=== PATIENT | male | born 1980 | race Caucasian/White ===

== ENCOUNTER → 2018-11-08 | Emergency (ER) | payer OTHER ==
[~2018-11-08] VITALS: Ht 167.6 cm; Wt 79.4 kg
[~2018-11-08] MED LIST: OSEL75CA PO
== END | disposition home or self-care (01) ==
LOC: ER 21:07
DX: S93.691A Other sprain of right foot, initial encounter (principal); X50.3XXA Overexertion from repetitive movements, initial encounter; Y93.89 Activity, other specified; Y92.89 Other specified places as the place of occurrence of the external cause; Y99.8 Other external cause status

== ENCOUNTER 2023-06-21 19:12 | Emergency (ER) | payer OTHER ==
[~2023-06-21] VITALS: Ht 167.6 cm; Wt 81.6 kg
[2023-06-21] MEDS ORDERED: VITAMIN D (20:15)
[2023-06-21] MEDS ORDERED: TAMSULOSIN HCL0.4 MG (20:15)
== END 2023-06-21 23:50 | disposition home or self-care (01) ==
LOC: ER 19:13
DX: M94.0 Chondrocostal junction syndrome [Tietze] (principal); Z88.0 Allergy status to penicillin